=== PATIENT | male | born 1945 | race Caucasian/White ===

== ENCOUNTER 2016-09-22 16:20 | Emergency (ER) | payer OTHER ==
[~2016-09-22] VITALS: Ht 182.9 cm; Wt 70.3 kg
[2016-09-22 16:47] VITALS: BP 115/74
== END 2016-09-22 17:03 | disposition home or self-care (01) ==
LOC: ER 16:23
DX: K40.90 Unilateral inguinal hernia, without obstruction or gangrene, not specified as recurrent (principal); I10 Essential (primary) hypertension
CPT/HCPCS: 99283; A4606; Z7610